=== PATIENT | female | born 1970 | race African-American/Black ===

== ENCOUNTER 2021-06-22 15:24 | Emergency (ER) | payer MEDICAID ==
[~2021-06-22] VITALS: Ht 157.5 cm; Wt 60.0 kg
[2021-06-22] MEDS ORDERED: IBUPROFEN 600MG TABLET PO ONE (17:30)
[2021-06-22] MEDS ORDERED: IBUP-2029 MT (18:10)
[2021-06-22 18:54] VITALS: BP 152/66
== END 2021-06-22 18:55 | disposition home or self-care (01) ==
LOC: ER 15:24
DX: J02.9 Acute pharyngitis, unspecified (principal); Z88.5 Allergy status to narcotic agent
CPT/HCPCS: 70360; 81025; 99283